=== PATIENT | female | born 1985 | race Caucasian/White ===

== ENCOUNTER 2017-10-13 22:43 | Emergency (ER) | payer MEDICAID ==
[2017-10-13] MEDS ORDERED: ONDANSETRON HCL INJ/PF 4 MG/2 ML SDV ONE (22:51)
[2017-10-13] MEDS ORDERED: RINGERS SOLUTION,LACTATED 1,000 ML IV ONE (23:01)
[2017-10-13] MEDS ORDERED: ONDANSETRON HCL INJ/PF 4 MG/2 ML SDV IV ONE (23:01)
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
[2017-10-13] MEDS ORDERED: KETAMINE HCL INJ 500 MG/10 ML VIAL ONE (23:18)
[2017-10-13] MEDS ORDERED: ETOMIDATE INJ/PF 20 MG/10 ML SDV IV ONE (23:18)
[2017-10-13] MEDS ORDERED: VECURONIUM BROMIDE INJ 10 MG VIAL IV ONE ×2 (23:19)
[2017-10-13 23:20] LABS: ACETAMINOPHEN < 10 ug/mL (10-30); ALANINE AMINOTRANSFERASE 30 U/L (9-52); ALBUMIN 4.7 g/dL (3.5-5.0); ALCOHOL 277 mg/dL (NONE DETECTED); ALKALINE PHOSPHATASE 93 U/L (38-126); ANION GAP 14 (5-19); ASPARTATE AMINO TRANSFERASE 47 U/L (14-36); BILIRUBIN,DIRECT 0.3 mg/dL (0.0-0.4); BILIRUBIN,TOTAL 0.3 mg/dL (0.2-1.3); BLOOD UREA NITROGEN 7 mg/dL (7-20); CALCIUM 9.3 mg/dL (8.4-10.2); CARBON DIOXIDE 24 mmol/L (22-30); CHLORIDE 110 mmol/L (98-107); GLUCOSE 90 mg/dL (75-110); SALICYLATE < 1.0 mg/dL (2.0-20.0); SODIUM 148.1 mmol/L (137-145); TOTAL PROTEIN 7.9 g/dL (6.3-8.2)
[2017-10-13 23:21] LABS: ABSOLUTE EOSINOPHILS # (AUTO) 0.1 10^3/uL (0.0-0.6); ABSOLUTE LYMPHOCYTES (AUTO) 1.9 10^3/uL (0.5-4.7); ABSOLUTE MONOCYTES (AUTO) 0.9 10^3/uL (0.1-1.4); ABSOLUTE NEUT (AUTO) 7.8 10^3/uL (1.7-8.2); BASOPHILS % (AUTO) 0.3 % (0-2); HEMATOCRIT 45.7 % (36.0-47.0); HEMOGLOBIN 15.7 g/dL (12.0-15.5); LYMPHOCYTES % (AUTO) 17.7 % (13-45); MEAN CORPUSCULAR HEMOGLOBIN 34.4 pg (27.0-33.4); MEAN CORPUSCULAR HGB CONC 34.3 g/dL (32.0-36.0); MEAN CORPUSCULAR VOLUME 100 fl (80-97); MONOCYTES % (AUTO) 8.6 % (3-13); PLATELET COUNT 253 10^3/uL (150-450); RED BLOOD COUNT 4.56 10^6/uL (3.72-5.28); RED CELL DISTRIBUTION WIDTH 13.5 % (11.5-14.0); SEGMENTED NEUTROPHILS % (AUTO) 72.4 % (42-78); TOTAL CELLS COUNTED % (AUTO) 100 %; WHITE BLOOD COUNT 10.7 10^3/uL (4.0-10.5)
--- NOTE | 2017-10-14 00:08 | RADIOLOGY REPORT (SQ) ---
EXAM DESCRIPTION: CHEST SINGLE VIEW COMPLETED DATE/TIME: 10/13/2017 11:51 pm REASON FOR STUDY: overdose, altered COMPARISON: None. EXAM PARAMETERS: NUMBER OF VIEWS: One view. TECHNIQUE: Single frontal radiographic view of the chest acquired. RADIATION DOSE: NA LIMITATIONS: None. FINDINGS: LUNGS AND PLEURA: No opacities, masses or pneumothorax. No pleural effusion. MEDIASTINUM AND HILAR STRUCTURES: No masses. Contour normal. HEART AND VASCULAR STRUCTURES: Heart normal in size. Normal vasculature. BONES: No acute findings. HARDWARE: None in the chest. OTHER: No other significant finding. IMPRESSION: NO ACUTE RADIOGRAPHIC FINDING IN THE CHEST. TECHNICAL DOCUMENTATION: JOB ID: [id number] [employer]- All Rights Reserved
[2017-10-14 00:25] LABS: APPEARANCE,URINE SLIGHTLY-CLOUDY; BILIRUBIN,URINE NEGATIVE (NEGATIVE); COLOR,URINE STRAW; GLUCOSE, URINE NEGATIVE (NEGATIVE); KETONES,URINE NEGATIVE (NEGATIVE); LEUKOCYTE ESTERASE,URINE NEGATIVE (NEGATIVE); NITRITE,URINE NEGATIVE (NEGATIVE); PROTEIN,URINE NEGATIVE (NEGATIVE); URINE SPECIFIC GRAVITY 1.002; UROBILINOGEN,URINE NEGATIVE mg/dL (<2.0)
[2017-10-14 00:29] LABS: URINE AMPHETAMINES SCREEN NEGATIVE; URINE BARBITURATES SCREEN NEGATIVE; URINE BENZODIAZEPINES SCREEN UNCONFIRMED POSITIVE; URINE COCAINE SCREEN NEGATIVE; URINE MARIJUANA (THC) SCREEN NEGATIVE; URINE METHADONE SCREEN NEGATIVE; URINE PHENCYCLIDINE SCREEN NEGATIVE
[2017-10-14 02:39] LABS: VENOUS BLOOD BASE EXCESS -5.1 mmol/L; VENOUS BLOOD HCO3 20.7 mmol/L (20-32); VENOUS BLOOD PCO2 41.3 mmHg (35-63); VENOUS BLOOD PH 7.32 (7.30-7.42)
[2017-10-14 07:45] VITALS: BP 122/75
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
--- NOTE | 2017-10-14 17:28 | EKG REPORT ---
SEVERITY:- BORDERLINE ECG - SINUS RHYTHM INFERIOR Q WAVES, PROBABLY NORMAL VARIATION : Confirmed by: Julieta Mar 14-Oct-2017 12:17:47
--- NOTE | 2017-10-15 09:36 | PSYCHOLOGICAL NOTE ---
Psych Note - Psych Note Psych Note: Reason for consult: Attempted Overdose Consents give: Sharon, sister, at bedside Patient is a 32 year old female who was brought to the Emergency Department by EMS. Patient stated she had been arguing with a friend and was just trying to calm down when she took a couple of Xanax. Patient stated she didnt know how many she took but denied she was attempting to commit suicide. She stated she had three or four glasses of wine and was not thinking clearly. She stated taking the Xanax was a heat of the moment action but reiterated she was not attempting to commit suicide. She reported the Xanax was from an old prescription she had from early 2016. She reported the prescription was written by her previous primary care physician for general anxiety. Patient reported she is employed, has a home and has a support system in the area, to include her sister and brother-in law. Patient reported being relatively new to the area as she moved here in March 2017. Patient denied any previous mental health treatment or a family history of mental health issues. Patient denied having any current prescriptions for mental health or medical reasons. Patient denied any previous inpatient mental health hospitalizations. Patient denied alcohol or drug abuse. Patient stated she drinks weekly and has approximately 3-4 glasses of wine when she drinks. Patient stated although she drinks regularly she does not have a substance abuse issue. Patient was alert and oriented to person, place, time and circumstance. Mood was euthymic with congruent affect. Patient denied suicidal/homicidal ideation, intent or plan. Patient stated she wasnt thinking of killing herself when she took the Xanax. She did not appear to be responding to internal stimuli as evidenced by appropriate eye contact, maintaining conversation and staying on topic. No delusions or psychosis noted. Thought processes were organized and linear. Conversational speech was within normal limits for rate, tone and prosody. Intellectual abilities were estimated in the average range. Insight, judgment and impulse control were fair. Patients sister was at bedside as support. Patients sister stated she would be willing to monitor the patient in her home for at least the next 24 hours. Patients sister stated she had no concerns for the patients safety if she was discharged. 1. 300.00 (F41.9) Unspecified Anxiety Disorder Impression/Plan: Recommend rescind IVC. Patient is psychiatrically clear. She no longer meets [place] G.S 122C IVC criteria. Patient denied suicidal/homicidal ideation, intent or plan. Patient is not considered a danger to herself or others. No delusions or psychosis were observed. Patient has a support system in place, with her sister and [id number]. Patient was given resources for mobile crisis, outpatient providers and alcohol detox and rehab. Provided education around establishing providers in the community to address any ongoing mental health or substance abuse issues. Consulted with Dr. Davila regarding the care and management of this patient. ED physician in agreement with recommendation and disposition.
== END 2017-10-14 12:00 ==
LOC: ER 22:43
DX: T42.4X4A Poisoning by benzodiazepines, undetermined, initial encounter (principal); F41.9 Anxiety disorder, unspecified; Z79.899 Other long term (current) drug therapy; F17.200 Nicotine dependence, unspecified, uncomplicated
CPT/HCPCS: 93005; 99285; 96361; 96374; 36415; 80307 ×4; 84703; 85025; 80053; 81001; 82803; 71045; 93010; J2405; J7120